=== PATIENT | female | born 1970 | race Caucasian/White ===

== ENCOUNTER 2017-01-07 08:46 | Emergency (ER) | payer MEDICAID, OTHER ==
[~2017-01-07] VITALS: Ht 162.6 cm; Wt 80.0 kg
[2017-01-07 08:48] VITALS: BP 163/99; PULSE 80; RESP 17; TEMP 98.2; O2SAT 98
[2017-01-07] MEDS ORDERED: LYRI100C PO (08:57)
[2017-01-07] MEDS ORDERED: DEXAMETHASONE 4 MG TAB PO ONE (09:15)
[2017-01-07] MEDS ORDERED: BENZONATATE 100 MG CAP PO ONE (09:15)
[2017-01-07] MEDS ORDERED: NAPR500T2 PO (10:35)
[2017-01-07] MEDS ORDERED: DOXY1LIQ3 PO (10:35)
--- NOTE | 2017-01-07 10:35 | PD ---
HPI Chief Complaint: ENT Complaint Time Seen by Provider: 09:03 Travel History International Travel<30 days: No Contact w/Intl Traveler<30days: No Traveled to known affect area: No History of Present Illness HPI So 46 year-old woman presents emergency department complaining of sore throat. Symptoms been ongoing for the past day or so. States it came on fairly abruptly. She's had difficulty talking with losing her voice, and pain in her neck and her lower chest. Some cough. No fevers. No sick contacts. Pain in the throat feels like "razor blades". History Past Medical History Medical History: Denies Significant Hx LMP: 12/06/16 Social History Alcohol Use: No Tobacco Use: No Allergies-Medications (Allergen,Severity, Reaction): Coded Allergies: acetaminophen (Verified Allergy, Unknown, 01/07/17) cyclobenzaprine (Verified Allergy, Unknown, 01/07/17) propoxyphene (Verified Allergy, Unknown, 01/07/17) Reported Meds & Prescriptions Reported Meds & Active Scripts Active Reported Lyrica (Pregabalin) 100 Mg Cap 100 Mg PO BID Review of Systems Except as stated in HPI: all other systems reviewed are Neg Physical Exam Narrative GENERAL: Well-appearing 46 old woman, no acute distress. SKIN: Focused skin assessment warm/dry. HEAD: Atraumatic. Normocephalic. EYES: Pupils equal and round. No scleral icterus. No injection or drainage. ENT: No nasal bleeding or discharge. Mucous membranes pink and moist. Little bit of inflammation in the posterior oral pharynx. No significant tonsillar adenopathy or purulent drainage. TMs are normal. NECK: Trachea midline. Some anterior cervical adenopathy. CARDIOVASCULAR: Regular rate and rhythm. No murmur appreciated. RESPIRATORY: No accessory muscle use. Clear to auscultation. Breath sounds equal bilaterally. GASTROINTESTINAL: Abdomen soft, non-tender, nondistended. Hepatic and splenic margins not palpable. MUSCULOSKELETAL: No obvious deformities. Data Data Last Documented VS Vital Signs Date Time Temp Pulse Resp B/P (MAP) Pulse Ox O2 Delivery O2 Flow Rate FiO2 01/07/17 08:48 98.2 80 17 163/99 (120) 98 Room Air Orders Orders Benzonatate (Tessalon) (01/07/17 09:15) Dexamethasone (Decadron) (01/07/17 09:15) Group A Rapid Strep Screen (01/07/17 09:14) Strep Culture (Group A) (01/07/17 09:25) MDM Medical Decision Making Medical Screen Exam Complete: Yes Emergency Medical Condition: Yes Interpretation(s) Rapid strep negative Differential Diagnosis Strep throat, pharyngitis, laryngitis, adenopathy, other Narrative Course Medical decision making 46 year-old woman presents to the emergency department complaining of losing her voice, sore throat, painful swallowing. Oropharyngeal exam is not very remarkable. We'll check rapid strep. Otherwise recommend supportive treatment for laryngitis. Diagnosis Primary Impression: Laryngitis Additional Instructions: Take Naprosyn as needed for pain and sore throat. Use cough syrup as prescribed as needed for cough. Return to the emergency department for any worsening pain, any trouble breathing , worsening difficulty swallowing, or any other new or worsening symptoms. Med/Other Pt SpecificInfo: Prescription(s) given Scripts Doxylamine-Dextromethorphan Liq (Robitussin Nighttime Cough Liq) 12.5-30 Mg/10 Ml Soln 10 ML PO Q6H Y for COUGH AND/OR COLD SYMPTOMS, #1 BOTTLE 0 Refills Prov: Sarabjit Whitt MD 01/07/17 Naproxen (Naproxen) 500 Mg Tab 500 MG PO BID Y for PAIN SCALE 1 TO 10, #10 TAB 0 Refills Prov: Sarabjit Whitt MD 01/07/17 Disposition: 01 DISCHARGE HOME Condition: Stable Sarabjit Whitt MD Jan 07, 2017 10:35
== END 2017-01-07 10:48 | disposition home or self-care (01) ==
LOC: NEPD 08:46
DX: J04.0 Acute laryngitis (principal)
CPT/HCPCS: 87081; 87880; 99284; J8540